=== PATIENT | male | born 1950 | race Two or more races ===

== ENCOUNTER 2021-03-12 09:19 | Emergency (ER) | payer OTHER ==
[~2021-03-12] VITALS: Ht 160 cm; Wt 62.1 kg
[2021-03-12] MEDS ORDERED: VASOTEC20 M1 (09:35)
[2021-03-12] MEDS ORDERED: FORTAMET500 MG (09:36)
[2021-03-12] MEDS ORDERED: GLIMEPIRIDE2 M1 (09:36)
== END 2021-03-12 11:09 | disposition home or self-care (01) ==
LOC: ER 09:19
DX: M94.0 Chondrocostal junction syndrome [Tietze] (principal)

== ENCOUNTER 2023-04-27 09:44 | Outpatient (CLI) | payer OTHER ==
[~2023-04-27 09:44] MED LIST: FORTAMET500 MG; GLIMEPIRIDE2 M1; VASOTEC20 M1
== END 2023-04-27 09:53 | disposition home or self-care (01) ==
LOC: RX STUDY 09:44
DX: R13.14 Dysphagia, pharyngoesophageal phase (principal)